=== PATIENT | female | born 1945 | race Caucasian/White ===

== ENCOUNTER 2023-02-25 14:51 | Inpatient (IN) | payer MEDICARE ==
[~2023-02-25] VITALS: Ht 167.6 cm; Wt 120.0 kg
[2023-02-25] VITALS (10 sets, daily range): BP systolic 103–152; BP diastolic 39–91
--- NOTE | 2023-02-25 14:53 | NUR ---
patient to room via wheelchair, able to transfer to bed without difficulty
[2023-02-25 15:40] LABS: BASO% 0.2 % (0-3); EOS% 0.1 % (0-8); HEMATOCRIT 34.8 % (37.0-47.0); HEMOGLOBIN 10.1 g/dl (12.0-16.0); IMMATURE GRANULOCYTES 0.2 % (0.0-5.0); LYMPH% 2.4 % (15-41); MEAN CELL VOLUME 94.1 fL CALC (80.0-100.0); MEAN CORPUSCULAR HGB 27.3 pG CALC (26.0-32.0); MONO% 8.3 % (2-13); NEUT# 11.07 thou/uL (2.00-7.15); NEUT% 88.8 % (42-76); RED BLOOD COUNT 3.7 mill/uL (4.20-5.60); RED CELL DISTRI WIDTH 16.2 % (11.5-15.5)
[2023-02-25 15:52] LABS: ALBUMIN 3.4 g/dL (3.2-5.0); BILIRUBIN, TOTAL 0.6 mg/dL (0.02-1.3); CREATININE 3.2 mg/dL (0.5-1.0); POTASSIUM 3.6 mmol/l (3.5-5.1); TOTAL PROTEIN 6.5 g/dL (6.3-8.2)
[2023-02-25] MEDS ORDERED: TRELSTAR DEPO3.75 MG (15:52)
[2023-02-25] MEDS ORDERED: ATORVASTATIN CA10 MG PO (15:52)
--- NOTE | 2023-02-25 15:53 | NUR ---
SIGNIFICANT OTHER AT BEDSIDE, ONE TO ONE CARE PROVIDED FOLLOWING STRAIGHT CATH.
[2023-02-25] MEDS ORDERED: OMEPRAZOLE DR10 MG (15:59)
[2023-02-25] MEDS ORDERED: SUCRALFATE1 GM PO (15:59)
--- NOTE | 2023-02-25 16:00 | NUR ---
RESTING. NO C/O PAIN.
[2023-02-25] MEDS ORDERED: GABAPENTIN100 MG PO (16:03)
[2023-02-25] MEDS ORDERED: CEPHALEXIN500 MG PO (16:03)
[2023-02-25] MEDS ORDERED: CARVEDILOL12.5 MG PO (16:04)
[2023-02-25] MEDS ORDERED: FUROSEMIDE20 MG PO (16:05)
[2023-02-25] MEDS ORDERED: B121000 MC1 (16:05)
[2023-02-25] MEDS ORDERED: FISH OIL1 CAP (16:05)
[2023-02-25 16:06] LABS: URINE BILIRUBIN - DIPSTICK NEGATIVE (NEGATIVE); URINE BLOOD DIPSTICK LARGE (NEGATIVE); URINE COLOR YELLOW; URINE GLUCOSE - DIPSTICK NEGATIVE (NEGATIVE); URINE KETONE NEGATIVE (NEGATIVE); URINE LEUK ESTERASE MODERATE (NEGATIVE); URINE NITRITE - DIPSTICK NEGATIVE (Negative); URINE PH 5.5 (4.5-8.0); URINE PROTEIN - DIPSTICK >=300 mg/dL (NEG-TRACE)
[2023-02-25] MEDS ORDERED: VITAMIN E400 UNIT PO (16:06)
[2023-02-25] MEDS ORDERED: TUMERSAID PO (16:06)
[2023-02-25] MEDS ORDERED: STOOL SOFTE1 PO (16:07)
[2023-02-25] MEDS ORDERED: GLUCOSAMINE1000 M1 PO (16:07)
[2023-02-25 16:20] LABS: URINE BACTERIA MANY hpf; URINE WBC >100 WBC/hpf (0-5)
--- NOTE | 2023-02-25 17:08 | NUR ---
PA AT THE BEDSIDE, DISCUSSING CONTINUED PLAN OF CARE.
--- NOTE | 2023-02-25 18:15 | NUR ---
PATIENT SITTING IN BED. PROVIDED A DINNER TRAY. AT BEDSIDE
--- NOTE | 2023-02-25 20:57 | NUR ---
VERBAL REPORT GIVEN TO NURSE BEAL ON MEDSURG/TELEMETRY. PATIENT TRANSPORTED TO THE ROOM .
--- NOTE | 2023-02-25 21:17 | NUR ---
Received report from Eli in ED. Arrived by hospital bed at 2109. Alert and oriented x4 with significant other at bedside. Head to toe assessment completed. Skin intact. Able to answer questions appropriately. Oriented to room amd surroundings. Call light witin reach. Respirations shallow on oxygen at 3 lpm via nasal cannula.
[2023-02-26] VITALS (9 sets, daily range): BP systolic 104–135; BP diastolic 45–64
[2023-02-26 05:32] LABS: HEMATOCRIT 36.4 % (37.0-47.0); HEMOGLOBIN 10.3 g/dl (12.0-16.0); MEAN CELL VOLUME 97.3 fL CALC (80.0-100.0); MEAN CORPUSCULAR HGB 27.5 pG CALC (26.0-32.0); MEAN CORPUSCULAR HGB CONC 28.3 g/dL CAL (32.0-36.0); RED BLOOD COUNT 3.74 mill/uL (4.20-5.60); RED CELL DISTRI WIDTH 16.4 % (11.5-15.5)
[2023-02-26 06:04] LABS: ALBUMIN 3.2 g/dL (3.2-5.0); CREATININE 3.4 mg/dL (0.5-1.0); MAGNESIUM 1.4 mg/dL (1.6-2.3); POTASSIUM 3.7 mmol/l (3.5-5.1); TOTAL PROTEIN 5.7 g/dL (6.3-8.2)
[2023-02-26 06:20] LABS: BILIRUBIN, TOTAL 0.3 mg/dL (0.02-1.3)
--- NOTE | 2023-02-26 07:28 | NUR ---
RECIEVED REPORT FROM PM RN. PT RESTING IN BED, ALL SAFETY MEASURES IN PLACE. NO NEEDS AT THIS TIME.
--- NOTE | 2023-02-26 20:00 | NUR ---
RECEIVED REPORT FROM NURSE NATTY, PATIENT RESTING IN BED, HOOKED ON O2 @ 2LPM VIA NC, IV ON LAC G 20 PATENT FLUSHES WELL, HOOKED ON TELEMETRY, HOOKED ON TELEMETRY, ACTIVE BOWEL SOUNDS LBM 02/26. AFEBRILE AT THIS TIME, CALL LIGHT IN REACH.
[2023-02-27] VITALS (7 sets, daily range): BP systolic 104–136; BP diastolic 45–63
--- NOTE | 2023-02-27 | NUR ---
PATIENT RESTING IN BED, WITH EYES CLSOED, REMAINS ON O2 @ 2LPM VIA NC, NOT IN DISTRESS CALL LIGHT IN REACH.
--- NOTE | 2023-02-27 04:21 | NUR ---
PATIENT RESTING IN BED NOT IN DISTRESS, REMAINS ON O2 @ 2LPM VIA NC, CALL LIGHT IN REACH.
[2023-02-27 05:36] LABS: HEMATOCRIT 35.1 % (37.0-47.0); MEAN CELL VOLUME 98.3 fL CALC (80.0-100.0); MEAN CORPUSCULAR HGB CONC 28.5 g/dL CAL (32.0-36.0); RED BLOOD COUNT 3.57 mill/uL (4.20-5.60); RED CELL DISTRI WIDTH 16.3 % (11.5-15.5)
[2023-02-27 06:01] LABS: ALBUMIN 2.9 g/dL (3.2-5.0); CREATININE 4.1 mg/dL (0.5-1.0); POTASSIUM 3.8 mmol/l (3.5-5.1); TOTAL PROTEIN 5.4 g/dL (6.3-8.2)
[2023-02-27 06:15] LABS: BILIRUBIN, TOTAL 0.1 mg/dL (0.02-1.3)
--- NOTE | 2023-02-27 07:00 | NUR ---
SHIFT CHANGE REPORT, PT AWAKE ALERT AND ORIENTED SITTING UP IN RECLINER, NO C/O DISCOMFORT, IVF INFUSING, CALL VALVERDE IN REACH AND BED LOCKED IN LOWEST POSITION.
--- NOTE | 2023-02-27 15:22 | NUR ---
PT DISCONNECTED IV FLUIDS AND WENT TO BR THEN CAME BACK WITH TRAIL OF BLOOD FROM BR TO ROOM, PT STATES HER HEMRROIDS WAS BLEEDING AND THIS EVENT HAPPENS OCCASIONALLY. ROOM CLEANED WITH BLEACH WIPES.
--- NOTE | 2023-02-27 19:58 | NUR ---
SBAR RECEIVED FROM LYLY FERRER. PATIENT IN BED WATCHING TV. CALL LIGHT WITHIN REACH.
--- NOTE | 2023-02-27 20:27 | NUR ---
PATIENT RESTING COMFORTABLY IN BED. ASSESSMENT COMPLETE. NO C/O PAIN AT THIS TIME, NO DISTRESS NOTED. CALL LIGHT WITHIN REACH INSTRUCTED TO CALL FOR ASSISTANCE.
[2023-02-28 00:12] VITALS: BP 128/52
--- NOTE | 2023-02-28 00:45 | NUR ---
RESTING EYES CLOSED. NO DISTRESS NOTED. CALL LIGHT WITHIN REACH.
[2023-02-28 04:11] VITALS: BP 155/72
--- NOTE | 2023-02-28 04:38 | NUR ---
ASSIST TO RESTROOM, MODERATE AMOUNT OF BLOOD NOTED IN TOILET. PATIENT STATES THAT HER HEMORRHOIDS ARE BLEEDING. SHE ALSO STATES THAT SHE RECEIVES IRON TRANSFUSIONS IN [place] BUT HAS MISSED THE LAST 2 TO 3 DOSES.
[2023-02-28 05:47] LABS: HEMOGLOBIN 9.9 g/dl (12.0-16.0); MEAN CELL VOLUME 98.4 fL CALC (80.0-100.0); MEAN CORPUSCULAR HGB CONC 27.5 g/dL CAL (32.0-36.0); RED BLOOD COUNT 3.66 mill/uL (4.20-5.60); RED CELL DISTRI WIDTH 15.9 % (11.5-15.5)
[2023-02-28 06:16] LABS: BILIRUBIN, TOTAL 0.1 mg/dL (0.02-1.3); CREATININE 3.3 mg/dL (0.5-1.0); POTASSIUM 3.6 mmol/l (3.5-5.1); TOTAL PROTEIN 5.6 g/dL (6.3-8.2)
[2023-02-28 07:19] VITALS: BP 148/64
--- NOTE | 2023-02-28 08:33 | NUR ---
Report received from off going nurse. Head to toe assessment completed. Denies pain or discomfort. Call light and personal items within reach.
[2023-02-28 11:16] VITALS: BP 137/71
--- NOTE | 2023-02-28 11:35 | NUR ---
FINAL BLOOD CULTURE RESULTS CALLED TO . 3/4 VIALS GROWING E.COLI. NO NEW ORDERS AT THIS TIME.
[2023-02-28] MEDS ORDERED: CIPROFLOXACN250 M1 PO (14:11)
--- NOTE | 2023-02-28 14:58 | NUR ---
Patient sitting up in recliner chair. Denies pain or discomfort. Personal items and call light within reach.
--- NOTE | 2023-02-28 16:14 | NUR ---
Patient given discharge instructions with significant other at bedside. No concerns voiced at this time. Patient transported downstairs via wheelchair.
== END 2023-02-28 16:00 | disposition home or self-care (01) | DRG 871 ==
LOC: ED 14:51 → ED-I 15:31 → ED 15:31 → ED-I 17:15 → ED 17:50 → MS2 17:51
PROVIDERS: Family Medicine; ADMIT Internal Medicine; ATTEND Internal Medicine
DX: A41.51 Sepsis due to Escherichia coli [E. coli] (principal); G93.41 Metabolic encephalopathy; N39.0 Urinary tract infection, site not specified; Z68.41 Body mass index [BMI] 40.0-44.9, adult; J96.11 Chronic respiratory failure with hypoxia; I13.0 Hypertensive heart and chronic kidney disease with heart failure and stage 1 through stage 4 chronic kidney disease, or unspecified chronic kidney disease; R65.20 Severe sepsis without septic shock; I50.9 Heart failure, unspecified; N18.9 Chronic kidney disease, unspecified; E83.42 Hypomagnesemia; J44.9 Chronic obstructive pulmonary disease, unspecified; E66.9 Obesity, unspecified; K64.9 Unspecified hemorrhoids; D64.9 Anemia, unspecified; K57.30 Diverticulosis of large intestine without perforation or abscess without bleeding; B96.1 Klebsiella pneumoniae [K. pneumoniae] as the cause of diseases classified elsewhere; Z87.440 Personal history of urinary (tract) infections; Z99.81 Dependence on supplemental oxygen; Z87.891 Personal history of nicotine dependence; Z22.8 Carrier of other infectious diseases; Z20.822 Contact with and (suspected) exposure to COVID-19
CPT/HCPCS: J1756; J3475